=== PATIENT | female | born 1965 | race Caucasian/White ===

== ENCOUNTER → 2020-08-13 | Outpatient (CLI) | payer OTHER ==
[~2020-08-13] MED LIST: PORTIA1 EACH PO; PRINIVIL20 MG PO; TOPROL XL100 MG PO; VITAMIN D32000 UNI1 PO
== END ==
LOC: M.MRI 14:13
PROVIDERS: ATTEND Orthopaedic Surgery
DX: S83.241A Other tear of medial meniscus, current injury, right knee, initial encounter (principal); M25.361 Other instability, right knee; M17.11 Unilateral primary osteoarthritis, right knee; X58.XXXA Exposure to other specified factors, initial encounter; Y93.89 Activity, other specified; Y92.89 Other specified places as the place of occurrence of the external cause; Y99.8 Other external cause status

== ENCOUNTER 2020-09-04 08:40 | Observation (INO) | payer OTHER ==
[~2020-09-04] VITALS: Ht 167.6 cm; Wt 86.6 kg
[~2020-09-04 08:40] MED LIST changes: +LISINOPRIL30 MG PO; +NORVASC10 MG PO
[2020-09-04 16:45] VITALS: BP 116/63
--- NOTE | 2020-09-04 19:38 | NUR ---
Pt arrived to floor around 1630. Pt alert and noting good pain control. Pt settled into room and dinner ordered. Pt napped after dinner and had no complaints. Bed in low position, call light within reach.
[2020-09-04 20:00] VITALS: BP 112/71
[2020-09-05] VITALS (9 sets, daily range): BP systolic 85–107; BP diastolic 36–61
[2020-09-05 04:47] LABS: HEMOGLOBIN 11.4 gm/dL (12.0-15.0)
--- NOTE | 2020-09-05 05:27 | NUR ---
PATIENT SLEPT PART OF THE NIGHT. PATIENT DOING WELL GETTING UP WITH WALKER AND GAITBELT TO BEDSIDE COMMODE. DRESSING TO RIGHT KNEE REMAINS INTACT WITH HEMOVAC IN PLACE. PATIENT WAS GIVEN PAIN MEDICINE TWICE THIS SHIFT WITH GOOD RELIEF. WILL CONTINUE TO MONITOR.
[2020-09-05] MEDS ORDERED: XARELTO10 MG PO (10:03)
[2020-09-05] MEDS ORDERED: OXYCODONE HCL 55 MG PO (10:03)
--- NOTE | 2020-09-05 16:00 | NUR ---
Pt is A&O. Resides at home with . Independent. Pt has a walker. No hx of HH or SNF. Goal is home at dc with [facility], CM to fax referral and orders at dc. CM contacted [facility] regarding Xarelto script, med requires a prior auth. CM updated Dr New, he plans to put Pt on an aspirin regime and will discuss with Pt. to provide dc transportation.
--- NOTE | 2020-09-05 17:52 | NUR ---
PATIENT RESTING IN BED. PATIENT DISCHARGE HELD DUE TO PERFORMANCE WITH PHYSICAL THERAPY AND LOW BLOOD PRESSURE. PATIENT HAS COMPLAINTS OF PAIN, TREATED PARTIALLY WITH MEDICATION AND COLD. PATIENT HAS BEEN ON CPM X 2 TODAY. PATIENT IS UP WITH ASSIST WITH GAIT BELT AND WALKER. PATIENT HAS FAIR APPETITE. PATIENT DENIES ANY NEEDS AT THIS TIME. CALL LIGHT WITHIN REACH.
[2020-09-06 00:24] VITALS: BP 101/45
[2020-09-06 03:30] VITALS: BP 95/41
[2020-09-06 03:48] LABS: HEMATOCRIT 29.6 % (37.0-47.0); HEMOGLOBIN 10.3 gm/dL (12.0-15.0)
--- NOTE | 2020-09-06 04:49 | NUR ---
PT A&OX4, VSS, PT PLACED ON 2L NC DUE TO O2 DESTAT WHILE SLEEPING. PT UP WITH ASSIST, GB AND WALKER TO [facility] [place]. IV FLUIDS INFUSING ORDERED. PRN PAIN MEDS REQUESTED AND GIVEN ORDERED. CPM THERAPY ORDERED. PT SLEEPING WELL. ASSESSMENTS AND HOURLY ROUNDINGS COMPLETE, WILL CONTINUE TO MONITOR.
[2020-09-06 07:50] VITALS: BP 103/42
--- NOTE | 2020-09-06 09:21 | NUR ---
Pt to dc home today, fax dc orders and referral to [facility]
[2020-09-06 13:50] VITALS: BP 85/46
[2020-09-06 14:30] VITALS: BP 118/61
--- NOTE | 2020-09-06 17:00 | NUR ---
PATIENT DISCHARGED TO HOME WITH HOME HEALTH. DISCHARGE PAPERS REVIEWED AND SIGNED. PRESCRIPTIONS TRANSMITTED TO PHARMACY. IV REMOVED. BELONGINGS PACKED INCLUDING CPM AND POLAR PACK. PATIENT DENIES ANY FURTHER NEEDS. PATIENT TAKEN BY WHEELCHAIR TO EXIT. LEFT WITH .
[2020-09-06 17:12] VITALS: BP 85/46
--- NOTE | 2020-09-10 16:30 | OP ---
[address] [address] OPERATIVE REPORT Name: TUCKER ZARATE [address]: [address]#: [id number] Admission: 09/04/20 Attend Phys: Layo Noyola Discharge: 09/06/20 Date of : 63 Report #: [id number] THIS REPORT FOR: cc: Twyla Mitchell Anna S. DO Greiner, Robert F. II DO ~ DOC #: [id number] Inder New II, DO DATE OF SURGERY: 09/04/2020 PREOPERATIVE DIAGNOSIS: Right knee osteoarthritis. POSTOPERATIVE DIAGNOSIS: Right knee osteoarthritis. PROCEDURE: Right total knee arthroplasty. SURGEON: Inder New II, DO BICYCLE DESIGNER: None. ANESTHESIA: General endotracheal. ESTIMATED BLOOD LOSS: 50 mL. ANTIBIOTICS: Ancef preoperatively. DRAINS: Medium Hemovac. COMPLICATIONS: None. CONDITION OF PATIENT: Stable to recovery room. IMPLANTS: Listed in operative record and progress note. BRIEF HISTORY: The patient was seen in the preoperative area. Preop H and P was performed. Site was marked, questions were answered. Risks and benefits were discussed with the patient in detail about the surgery. The patient wished to proceed, assuming all risk. OPERATIVE PROCEDURE: The patient was taken to the operative suite and placed supine on the operating table, given appropriate anesthesia. A well-padded tourniquet applied to the upper thigh, which was inflated to 300 mmHg after gravity exsanguination. The operative knee was sterilely prepped and draped. Surgery began by midline incision. This was then carried down to the subcutaneous tissues. A medial parapatellar arthrotomy was performed and carried down to bone. Patella was then everted and [place] [address] OPERATIVE REPORT Name: LYUDMILANEILTUCKER S Room: [address] Vipul#: [id number] Admission: 09/04/20 Attend Phys: Layo Noyola Discharge: 09/06/20 Date of : 63 Report #: [id number] removed from around the femur. Femoral cutting block was then applied and checked with a with drop beth for rotational alignment, pinned in appropriate position and appropriate cuts were made. A 4-in-1 cutting block was then applied, checked for rotational alignment, pinned in appropriate position and appropriate cuts were made. The tibia was exposed. Excess meniscus was removed. Retractor was placed on the collateral ligaments. The tibial cutting block was then applied, pinned in appropriate position, checked with drop beth for rotational alignment and slope and appropriate cut was made. Tibial bone was removed. Tibial base plate was then applied, checked for rotation alignment drop beth and pinned in appropriate position. The femur was then applied and box cut was reamed. This was then trialed with appropriate spacer, which showed excellent fit and fill and excellent stability of the knee throughout all range of motion. The patella was reamed in appropriate fashion and sized to appropriate size. Three peg holes were drilled and it was then trialed and showed excellent flexion, extension, excellent tracking of the patella within the groove. These trials were removed. The tibia was punched for appropriate fashion. Bone ends were cleansed with Pulsavac irrigation and cement was mixed and applied to final implants. These were then malleted into position and held the knee in extension and compressed to allow cement to cure. After it cured, excess was removed using Blevins and osteotome. The wound was then copiously irrigated. The final spacer was then malleted in position. The tourniquet was deflated. Hemostasis was obtained with electrocautery. The pain cocktail was injected. Medium Hemovac drain was then applied. Capsule was closed with 2 FiberWire and 1 Vicryl in [id number] fashion. Skin was closed with 2-0 Vicryl and running 3-0 Monocryl. Dermabond and sterile dressing was applied. Jomar wrap and PolarCare applied. The patient was transported to recovery room in stable condition. Counts were correct. Inder New II, DO RFG/SUM <ELECTRONICALLY SIGNED> By: Inder New II, DO 09/10/20 1630 0721 [id number] New II, DO /nt
== END 2020-09-06 17:00 | disposition home health service (06) ==
LOC: M.ORTHSURG 08:40 → M.TBA 08:40 → M.ORTHSURG 10:04
PROVIDERS: Orthopaedic Surgery; ADMIT Internal Medicine; ATTEND Internal Medicine
DX: M17.11 Unilateral primary osteoarthritis, right knee (principal); I10 Essential (primary) hypertension; D64.9 Anemia, unspecified; Z79.899 Other long term (current) drug therapy

== ENCOUNTER 2021-04-04 14:57 | Emergency (ER) | payer OTHER ==
[~2021-04-04] VITALS: Ht 165.1 cm; Wt 84.8 kg
[~2021-04-04 14:57] MED LIST changes: +OXYCODONE HCL 55 MG PO; +XARELTO10 MG PO
[2021-04-04 15:23] LABS: ABSOLUTE BASOPHILS 0.1 thou/uL (0.0-0.2); ABSOLUTE EOSINOPHILS 0.1 thou/uL (0.0-0.7); ABSOLUTE LYMPHOCYTES 2.1 thou/uL (0.8-5.3); ABSOLUTE MONOCYTES 0.6 thou/uL (0.0-1.2); ABSOLUTE NEUTROPHILS 6.1 thou/uL (1.6-8.1); EOSINOPHILS 1.1 %; HEMATOCRIT 38.6 % (37.0-47.0); HEMOGLOBIN 12.5 gm/dL (12.0-15.0); LYMPHOCYTES 23.7 %; MCH 30.8 pg (26.0-34.0); MCHC 32.4 g/dL (28.0-37.0); MCV 94.9 fL (80.0-100.0); MONOCYTES 7.1 %; MPV 8.5 fl. (7.2-11.1); NUCLEATED RBCS 0 /100WBC; PLATELET COUNT* 265 thou/uL (150-400); POLYS 67.1 %; RBC 4.07 mil/uL (4.20-5.00); RDW-CV 14.1 % (10.5-14.5); WBC 9.1 thou/uL (4.0-11.0)
[2021-04-04 15:27] LABS: URINE BILIRUBIN NEGATIVE (Negative); URINE BLOOD NEGATIVE (Negative); URINE COLOR YELLOW; URINE GLUCOSE-RANDOM NEGATIVE (Negative); URINE KETONES TRACE (Negative); URINE NITRITE-REFLEX NEGATIVE (Negative); URINE PROTEIN TRACE (Negative); URINE SPECIFIC GRAVITY 1.025 (1.005-1.030); URINE UROBILINOGEN 0.2 E.U./dl (0.2-1.0)
[2021-04-04 15:32] LABS: CALCIUM 8.5 mg/dL (8.5-10.1); CREATININE 0.9 mg/dL (0.6-1.3); POTASSIUM 4.1 mmol/L (3.5-5.1)
[2021-04-04 15:33] LABS: URINE CLARITY CLOUDY; URINE LEUKOCYTES-REFLEX 2+ (Negative)
[2021-04-04 15:37] LABS: ALBUMIN 3.4 g/dL (3.4-5.0); TOTAL BILIRUBIN 0.3 mg/dL (<0.1-1.0)
[2021-04-04 15:37] LABS: SQUAMOUS >10 Many /LPF (0-3); URINE RBC None Seen /HPF (0-2)
[2021-04-04 15:38] LABS: BACTERIA-REFLEX >30 Many /HPF (None Seen); CASTS None Seen /LPF (None Seen); CRYSTALS None Seen /LPF (None Seen); MUCUS 0-3 Light strn/LPF (None Seen)
[2021-04-04] MEDS ORDERED: METRONIDAZOLE500 M4 PO (17:33)
[2021-04-04] MEDS ORDERED: CIPROFLOXACIN500 M1 PO (17:33)
[2021-04-04 18:41] VITALS: BP 126/73
--- NOTE | 2021-04-05 09:37 | EKG ---
[place] [address] ELECTROCARDIOGRAM REPORT Name: TUCKER ZARATE Room: [facility]#: [id number] Admission: 04/04/21 Attend Phys: Discharge: 04/04/21 Date of : 63 Date of Service: 04/04/21 1500 Report #: [id number] THIS REPORT FOR: //name// [facility] ED Test Date: 2021-04-04 Test Time: 15:00:03 Pat Name: TUCKER ZARATE Department: Room: Gender: F University Professor: : 1965 Requested By: Laverne Mejia Order Number: [id number] MD: Zack Krueger Measurements Intervals [place] Rate: 54 P: 32 MD: 194 QRS: 26 QRSD: 112 T: 11 QT: 444 QTc: 421 Interpretive Statements Sinus bradycardia Borderline intraventricular conduction delay Compared to ECG 08/28/2020 10:19:59 First degree AV block no longer present Electronically Signed On 04-05-2021 9:37:25 FRONT DESK ADMINISTRATOR by Zack Krueger [email or web address] <ELECTRONICALLY SIGNED> By: Zack Krueger MD, FACC 04/05/21 0937 1500 1500 Zack Krueger MD, [facility] /EPI
== END 2021-04-04 18:42 | disposition home or self-care (01) ==
LOC: M.ERS 14:57
PROVIDERS: Physician Assistant
DX: N39.0 Urinary tract infection, site not specified (principal); K52.9 Noninfective gastroenteritis and colitis, unspecified; I95.1 Orthostatic hypotension; Z90.49 Acquired absence of other specified parts of digestive tract; Z79.899 Other long term (current) drug therapy